=== PATIENT | female | born 2000 | race Caucasian/White ===

== ENCOUNTER → 2024-07-16 | Outpatient (CLI) | payer OTHER, SELFPAY ==
--- NOTE | 2024-07-16 07:35 | RAD_ITS ---
EXAM: ESOPHAGUS double CONTRAST CLINICAL HISTORY: Cough and vomiting. COMPARISON: None. TECHNIQUE: The patient ingested barium. Imaging of the esophagus was obtained. FINDINGS: The esophagus is unremarkable. No evidence of gastroesophageal reflux. No evidence of esophageal obstruction. The patient ingested a 12 mm tablet the barium without any difficulty. RAD/Esophagus Single Contrast IMPRESSION: Unremarkable air contrast barium swallow. Reading Location: [place] [id number]
== END | disposition home or self-care (01) ==
PROVIDERS: PCP Nurse Practitioner Family; Referring Provider Otolaryngology; Visit Provider Otolaryngology Otolaryngology/Facial Plastic Surgery
DX: R13.14 Dysphagia, pharyngoesophageal phase (principal)
CPT/HCPCS: 74220